=== PATIENT | female | born 1940 | race Two or more races ===

== ENCOUNTER 2025-04-15 07:00 | Day surgery (SDC) | payer MEDICARE, MEDICAID, SELFPAY ==
--- NOTE | 2025-04-14 11:32 | EKG_ITS ---
[facility] Test Date: 2025-04-14 Pat Name: NAHID MALDONADO Department: Room: - Gender: Female Global [employer]: ORAL : 1940 Requested By: Paresh Juarez Order Number: [id number] Reading MD: Paresh Juarez Measurements Intervals [place] Rate: 59 P: 16 IA: 184 QRS: 43 QRSD: 75 T: 34 QT: 438 QTc: 435 Interpretive Statements SINUS BRADYCARDIA NONSPECIFIC T-WAVE ABNORMALITY No previous ECG available for comparison /[id number]/S0/[id number]
[2025-04-14 11:38] VITALS: BMI 34.0
[2025-04-14 12:32] LABS: Basophils # (Auto) 0.1 Thou/mm3 (0.0-0.2); Basophils % (Auto) 1 % (0-2.5); Eosinophils # (Auto) 0.2 Thou/mm3 (0.0-0.5); Eosinophils % (Auto) 2 % (0-10); Hematocrit 47.3 % (36.0-46.0); Hemoglobin 15.9 g/dL (12.0-16.0); Immature Granulocytes Auto 0.03 Thou/mm3 (0.00-0.00); Lymphocytes # (Auto) 3.4 Thou/mm3 (1.0-4.8); Lymphocytes % (Auto) 33 % (10-50); Mean Corpuscular HGB Conc 33.6 g/dl (31.0-37.0); Mean Corpuscular Hemoglobin 30.5 pg (25.0-35.0); Mean Corpuscular Volume 91 fL (80-100); Monocytes # (Auto) 0.9 Thou/mm3 (0.0-0.8); Monocytes % (Auto) 9 % (0-12); Neutrophils # (Auto) 5.7 Thou/mm3 (1.8-7.7); Neutrophils % (Auto) 55 % (37-80); Nucleated Red Blood Cell # 0.00 Thou/mm3 (0.00-0.00); Nucleated Red Blood Cell % 0 /100 WBC (0); Platelet Count 231 Thou/mm3 (140-440); RDW Standard Deviation 42.4 fL (36.4-46.3); Red Blood Count 5.21 Miln/mm3 (4.00-5.20); White Blood Count 10.4 Thou/mm3 (3.6-11.0)
[2025-04-14 12:44] LABS: Alanine Aminotransferase 22 U/L (10-49); Albumin, Serum 4.7 gm/dL (3.4-4.8); Albumin/Globulin Ratio 1.9 (1.2-2.2); Alkaline Phosphatase 87 U/L (46-116); Anion Gap 9 (7-16); Aspartate Amino Transferase 20 U/L (0-34); BUN/Creatinine Ratio 16 Ratio (12-20); Bilirubin,Total 1.1 mg/dL (0.3-1.2); Blood Urea Nitrogen 8 mg/dL (9-23); Calcium 9.9 mg/dL (8.3-10.6); Calcium (Corrected) 9.9 mg/dL (8.5-10.1); Carbon Dioxide 24.0 mMol/L (20.0-31.0); Chloride 109 mMol/L (98-107); Creatinine (Component) 0.5 mg/dL (0.6-1.3); Estimated Creatinine Clearance 64.7 mL/min (>60); Globulin 2.5 gm/dL (2.3-3.5); Glucose 89 mg/dL (74-106); Osmolality,Calculated 280 (275-295); Potassium 4.3 mMol/L (3.4-5.1); Sodium 142 mMol/L (136-145); Total Protein 7.2 gm/dL (5.7-8.2); eGFR > 60 See Note
[2025-04-14 12:45] LABS: INR 1.0 (0.9-1.3); Partial Thromboplastin Time 31.6 Seconds (22.0-36.0); Prothrombin Time 10.3 Seconds (9.0-12.2)
--- NOTE | 2025-04-14 15:43 | SUR.PREOP ---
message left for daughter Nina to bring pt at 0700 tomorrow.
--- NOTE | 2025-04-14 16:55 | ESHP_ITS ---
RE: NAHID MALDONADO : 1940 DATE OF ADMISSION: 04/14/2025 Patient came to my office on 04/14/2025 for detailed preop history and physical examination. HISTORY OF PRESENTING COMPLAINT: Patient has got history of pain, swelling, clicking, and locking of the right knee joint. This is going on for a long period of time. The quality of life is affected and activities of daily living is affected. Intensity of pain is 7-8 out of 10. Patient is unable to sleep. PAST MEDICAL HISTORY: Patient has history of high blood pressure. There is no history of diabetes mellitus, asthma, seizure, chest pain, myocardial infarction, or bleeding disorder. DRUG HISTORY: * Amlodipine. * Carvedilol. * Gabapentin. * Rosuvastatin. ALLERGIES: NIL KNOWN. FAMILY HISTORY AND SOCIAL HISTORY: Patient denies smoking, drinking. Not working. PHYSICAL EXAMINATION: GENERAL: Normal built lady. VITAL SIGNS: Pulse 68 per minute, blood pressure 130/76. NECK: Soft, supple. No mass felt. Trachea is centrally placed. CARDIOVASCULAR SYSTEM: First and second heart sounds normal. No murmur heard. RESPIRATORY SYSTEM: Bilateral vesicular breath sounds. CHEST: Clear. ABDOMEN: Soft. No masses felt. Bowel sounds present. RIGHT KNEE EXAMINATION: Revealed 1+ swelling and 2+ tenderness. Active range of motion 0-110 degrees of flexion. Crepitus is present. Genu varum deformity is present. Tigist test is positive. Draw test and Kathleen test were negative. Neurovascularly intact. ASSESSMENT AND PLAN: Since patient is symptomatic, therefore right knee arthroscopy was discussed and advised. Risk with anesthesia was explained and that includes, but not limited to reaction to anesthetic agents, cardiac arrest, or rarely it might be fatal. Risks with operation include infection and if that happens, patient may need further surgical procedure. Other risks include delayed healing, wound dehiscence, etc. No guarantees given regarding outcome of the procedure and/or relief of symptoms. Indeed, if one finds grade 3 or grade 4 arthritis, patient may not get relief of pain and may be a candidate for knee replacement. Patient is cleared for surgical procedure. Surgery booked for 04/15/2025. Appropriate lab work done. DT: 16:20:22 TT: 16:54:00 Ref: [id number] - TID: [id number]
[2025-04-15] VITALS (9 sets, daily range): BP systolic 111–161; BP diastolic 55–82; PULSE 62–74; RESP 12–17; TEMP 36.2–37.1; O2SAT 96–99; BMI 34.2
--- NOTE | 2025-04-15 07:35 | SUR.PREOP ---
Patient expressed gratitude for prayer before their procedure.
[2025-04-15] MEDS: RINGERS LACTATED 1000 ML 1,000 ML 20 ML IV (07:45)
--- NOTE | 2025-04-15 10:07 | PD.SUROPNT ---
Date of Procedure 04/15/25 Pre Op Diagnosis 1. 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 Partial medial meniscectomy 2. Partial lateral meniscectomy 3. Chondroplasty 4. Partial synovectomy including excision plica and shelf Findings Refer dictation Procedure Description The patient was given general endotracheal anesthesia. Once satisfactory anesthesia was achieved, tourniquet was placed on right upper thigh. Following that the part was thoroughly prepped and draped. After using Esmarch the tourniquet pressure was raised to 350 mmHg. A skin incision was made proximal to lateral tibial plateau and arthroscope was introduced in the usual fashion. Another a skin incision was made in suprapatellar pouch area and outlet was established. The findings were noted as below. In suprapatellar pouch area significant synovial tissue inflammation was present. Medial plica was present as well. 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 The anterior femoral condyle showed grade 4 chondromalacia. Soft tissue impingement was present. The patellar tracking was checked and found to be good. The medial compartment showed grade 3 chondromalacia for medial tibial plateau and medial femoral condyle. The medial meniscus showed degeneration and tear of the posterior horn. The anterior horn showed degeneration Another skin incision was made proximal to medial tibial plateau and a probe was introduced and findings were confirmed. The anterior cruciate ligament was intact. The anterior drawer test was performed and found to be good. With the help of probe the integrity was tested and found to be good. 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 Almost all area of the lateral tibial plateau and lateral femoral condyle were denuded of cartilage. Lateral meniscus showed degeneration and complex tear of the body and posterior horn. Basket was introduced in medial compartment and torn part of the posterior horn and body of the medial meniscus was excised. A shaver was introduced and shaving of the anterior horn and posterior horn of medial meniscus was performed. Soft tissue impingement was shaved off. Chondroplasty of the medial femoral condyle and medial tibial plateau was performed. With the help of basket the torn part of the body and posterior horn of lateral meniscus was excised. The shaving of the lateral meniscus was done. Chondroplasty of the lateral femoral condyle and tibial plateau was performed.. The chondroplasty of the patella and and anterior femoral condyle was performed. The soft tissue impingement was shaved off. Medial shelf was excised. A partial synovectomy including excision of plica was performed. Copious amount of irrigation was used to irrigate the knee joint. All the debris were removed. 3-0 Prolene was used to close the wound. About 20 mL of quarter percent Marcaine along with 10 mg of Duramorph was injected. Patient tolerated procedure well. Estimated blood loss was about 5 mL. Prognosis in this case is extremely guarded. 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 If the pain is severe and is interfering with quality of life and actives daily living patient may be a candidate for knee replacement and patient is fully aware of that. Patient was taken to the recovery room in good condition. Anesthesia GETA Pathology / specimen None Estimated Blood Loss 2 Surgeon Paresh Bullock MD Surgical Staff Operation Date: 04/15/25 09:15 Case Staff Anesthesiologist: Vinnie Moreno
--- NOTE | 2025-04-15 10:51 | SUR.PHASEI ---
1014: Pt received in [facility] via gurney. Report from [facility] and Dr. Moreno. Pt groggy, but awake. Resp even, unlabored. BP elevated. Anesthesia aware. Other VS stable. Dressing to right knee dry, clean, intact. Bilateral pedal pulses strong, regular. Denies pain. 1044: Pt more awake, alert. Resp even, unlabored. BP coming down. VS stable. Dressing remains dry, clean, intact. Bilateral pedal pulses strong, regular. Denies pain.
--- NOTE | 2025-04-15 11:34 | SUR.PHASEII ---
1105: Pt more awake, alert. VS stable. Dressing remains dry, clean, intact. Pedal pulses strong, regular. Pt sitting up tolerating po fluids with no difficulty swallowing and no n/v. Daughter at bedside.
--- NOTE | 2025-04-15 12:08 | SUR.PHASEII ---
1142: Pt fully awake, oriented x2. VS stable. Dressing remains dry, clean, intact. Pedal pulses strong, regular. Pt dressed. Assisted to restroom. Ambulation steady. Pt and daughter stated understanding of discharge instructions. Pt discharged from [facility] in stable condition.
== END 2025-04-15 11:42 | disposition home or self-care (01) ==
LOC: S2EX 07:12
PROVIDERS: Anesthesiology; PCP Family Medicine; Referring Provider Orthopaedic Surgery; Visit Provider Orthopaedic Surgery
PROC: (CPT 29870; principal; 2025-04-15 09:00)
DX: S83.271A Complex tear of lateral meniscus, current injury, right knee, initial encounter (principal); X58.XXXA Exposure to other specified factors, initial encounter; S83.241A Other tear of medial meniscus, current injury, right knee, initial encounter; Z01.810 Encounter for preprocedural cardiovascular examination; M23.311 Other meniscus derangements, anterior horn of medial meniscus, right knee; M23.321 Other meniscus derangements, posterior horn of medial meniscus, right knee; M22.41 Chondromalacia patellae, right knee; M65.861 Other synovitis and tenosynovitis, right lower leg; M17.11 Unilateral primary osteoarthritis, right knee; M67.51 Plica syndrome, right knee; M26.81 Anterior soft tissue impingement
CPT/HCPCS: 29880; 36415; 80053; 85025; 85610; 85730; 93005; A4217; A4649; J0131; J0690; J1100; J2704; J2765; J3010; J3490; J7120